=== PATIENT | female | born 1985 | race Caucasian/White ===

== ENCOUNTER 2017-08-13 15:12 | Emergency (ER) | payer MEDICAID ==
[2017-08-13] MEDS ORDERED: DEXAMETHASONE SOD PHOSPHATE 10MG/ML 1ML VIAL ONE (15:56)
[2017-08-13] MEDS ORDERED: LORAZEPAM 1 MG TABLET ONE (16:02)
== END 2017-08-13 16:24 | disposition home or self-care (01) ==
LOC: EDH 15:12
DX: G40.802 Other epilepsy, not intractable, without status epilepticus (principal); M25.50 Pain in unspecified joint; M32.9 Systemic lupus erythematosus, unspecified; Z72.0 Tobacco use
CPT/HCPCS: 96372; 99283; J1100